=== PATIENT | male | born 2000 | race Caucasian/White ===

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

== ENCOUNTER 2021-11-12 23:03 | Emergency (ER) | payer BC, SELFPAY ==
[2021-11-12 23:04] VITALS: BP 118/77; PULSE 108; RESP 16; TEMP 37.7; O2SAT 97; BMI 21.5
--- NOTE | 2021-11-12 23:16 | CT_ITS ---
STUDY: CT SOFT TISSUE NECK WITH CONTRAST REASON FOR EXAM: Male, 21 years old. Lymphadenitis RADIATION DOSAGE (If Supplied By Facility): CTDIvol = ( 19.83 ) mGy, DLP = ( 621.34 ) mGycm TECHNIQUE: The patient was scanned in a multi-detector CT scanner. High resolution transaxial imaging was performed following intravenous administration of IV 75mL Isovue-370. Sagittal and coronal images were reconstructed. Individualized dose optimization techniques were used for this CT. COMPARISON: None. FINDINGS: NASOPHARYNX: Prominent adenoids. SUPRAHYOID NECK: Purlear tonsils are prominent and protrude medially, contacting the uvula. The palatine tonsils show mild striated enhancement indicate tonsillitis. No ring-enhancing fluid collection is seen to indicate peritonsillar abscess. The uvula does not appear enlarged or edematous. Parapharyngeal fat is preserved. INFRAHYOID NECK: Unremarkable larynx, hypopharynx, and supraglottis. THYROID: No focal lesions. SALIVARY GLANDS: Unremarkable. LYMPH NODES: Enlarged lymph nodes are seen along the right anterior internal jugular quincy chain, measuring up to 21 mm in short axis diameter. Enlarged lymph nodes measuring up to 15 mm in short axis diameter seen along the left anterior internal jugular quincy chain. Numerous normal-sized nodes are seen along both anterior and posterior internal jugular quincy chains and along the spinal accessory chains bilaterally. No suppurative lymph nodes are identified. Normal-sized to slightly enlarged submandibular nodes are present, measuring up to 14 mm in short axis diameter. Normal-sized supraclavicular lymph nodes are noted bilaterally. There is also a prominent right supraclavicular node measuring up to 12 mm in short axis diameter. No superior mediastinal adenopathy is noted. VASCULAR STRUCTURES: Unremarkable. VISUALIZED PORTIONS OF THE ORBITS, PARANASAL SINUSES, MASTOID AIR CELLS AND SKULL BASE: Unremarkable. BONES: Unremarkable. THORACIC INLET: Clear lung apices. IMPRESSION: Prominent adenoids and palatine tonsils with striated enhancement of the palatine tonsils indicating tonsillitis. Associated cervical, submandibular adenopathy and right supraclavicular adenopathy. No peritonsillar or retropharyngeal abscess. Normal epiglottis. Electronically Signed: Gerry Romo MD at 0:22 EDT , CT/Soft Tissue Neck WITH Contrast
--- NOTE | 2021-11-12 23:19 | EX.ED.DYSGE1 ---
HPI History of Present Illness Chief Complaint: Headache Narrative Narrative: Patient presents with bumps on the side of his face and neck that caused him to have headache. He states that he has history of migraine headaches however. He denies any subjective fever, chills, nausea, or vomiting. 3 to 4 days ago, he did notice that the right side of his neck was swollen and puffed up in comparison to the other side. That has resolved, but he states he has residual bumps in front of his right ear and on his right neck. He also noticed them on the left side mainly in his neck. She denies any other symptoms and states I feel fine. No scalp lesions recently. He states he had an upper respiratory illness a month ago, but denies any current sore throat, ear pain, or any other symptoms. [facility] Medical History Hemophilia Skin cancer Home Medications NK 05/26/20 [History Last Taken Unknown] amoxicillin-pot clavulanate 1 tab PO BID #20 tab 11/13/21 [Rx Last Taken Unknown] Allergy/AdvReac Type Severity Reaction Status Date / Time No Known Allergies Allergy Verified 11/12/21 23:05 Social History Smoking Status: Current every day smoker tobacco type: e-cigarettes ROS ROS ED ROS Narrative Constitutional: No fever, no chills. HEENT: No sore throat. No neck pain. No loss of vision. No rhinorrhea. Bumps in front of right ear and on neck bilaterally. States pea-sized lump on right side of neck. Prior right-sided neck swelling-resolved Cardiovascular: No chest pain. No palpitations. No pedal edema. Respiratory: No cough, no shortness of breath. Abdominal: No abdominal pain. No nausea. No vomiting. Genitourinary: No dysuria. No hematuria. Musculoskeletal: No myalgias. No arthralgias. Neurologic: Migraine headaches. No dizziness. No lightheadedness. Skin: No rash. No change in color. Psychiatric: No depression. No anxiety. EXAM Physical Exam Narrative Exam Narrative: Afebrile. Vital signs noted. Temperature 100 ?F. Nontoxic-appearing. HEENT: Normocephalic. Atraumatic. PERRL, EOMI. Neck soft and supple. No point tenderness or step off. Positive preauricular enlarged lymph node on right. Bilateral cervical adenopathy. No noted erythema. Airway patent. No drooling or trismus. Cardiovascular: Regular rate and rhythm. No murmurs, rubs, or gallops appreciated. Respiratory: No tachypnea. Lungs clear to auscultation bilaterally. Gastrointestinal: Abdomen soft, nontender, with normoactive bowel sounds. No rebound or guarding. Neurological: Awake. Alert. Oriented x3. Nonfocal, nonlateralizing. Skin: No rash. Normal color. No pallor. Musculoskeletal: No pedal edema. Full range of motion extremities. Const Vital Signs: 11/12/21 23:04 11/13/21 00:09 11/13/21 00:57 Temperature 100 F H 99.9 F H Temperature Source Temporal Oral Pulse Rate 108 H 98 Respiratory Rate 16 18 Blood Pressure 118/77 Blood Pressure Mean 90 Pulse Ox 97 97 Oxygen Delivery Method Room Air MDM MDM MDM Narrative Medical decision making narrative: Given his bilateral lymphadenopathy, comprehensive work-up was pursued. BMP was obtained and is normal with a normal creatinine and normal BUN. CBC is pending. CT of the neck with IV contrast was also obtained. Patient has slightly elevated white count of 11.7, hemoglobin normal at 13.3. Platelet count also normal at 206. He does have a lymphocytosis elevated at 62.5%. Neutrophil percentage is low at 21.1. He also has monocytes elevated at 13.6. Electrolyte panel is grossly unremarkable. CT of the soft tissue neck shows infective tonsillitis of the palatine tonsils. Although the patient initially states that he does not have a sore throat he states it feels slightly swollen. His pulse ox is 97% on room air. I do feel that this may be the source of his slightly elevated temperature which was repeated at 99.9 ?F orally. He was given his first dose of Augmentin here and a prescription written for the next 10 days. I will touch base with hematology/oncology because the CT did read the tonsillitis with rather large lymph nodes noted at 21 and 15 mm. There are also other normal to slightly enlarged lymph nodes noted bilaterally. These can be associated with his tonsillitis. He was referred to hematology oncology, and to a primary care physician. He does state that he is going back home as he is a student sometime next week. I strongly encouraged him to follow-up with his primary care physician in [place]. Return instructions were reviewed. Disposition is discharged home in stable condition. Lab Data Attestation: I reviewed the patient's lab results. Labs: Laboratory Results - last 24 hr 11/12/21 11/12/21 23:25 23:25 WBC 11.7 H RBC 4.63 Hgb 13.3 Hct 39.5 L MCV 85.3 MCH 28.7 MCHC 33.7 RDW Std Deviation 39.9 RDW Coeff of Zakiya 12.7 Plt Count 206 MPV 9.6 Immature Gran % (Auto) 0.400 Neut % (Auto) 21.1 L Lymph % (Auto) 62.5 H Maverick % (Auto) 13.6 H Eos % (Auto) 0.9 Baso % (Auto) 1.5 H Absolute Neuts (auto) 2.5 Absolute Lymphs (auto) 7.28 H Nucleated RBC % 0 Differential Comment SCANNED Diff Path Review May foll Reactive Lymphocytes 2+ Sodium 137 Potassium 3.8 Chloride 104 Carbon Dioxide 28.0 Anion Gap 5 BUN 10 Creatinine 0.97 Estim Creat Clear Calc 116.91 Est GFR (MDRD) Af Amer 126 Est GFR (MDRD) Non-Af 104 BUN/Creatinine Ratio 10.3 Glucose 100 Calcium 9.1 Radiography Diagnostic Testing: Clinical Impression(s) from Imaging Studies Soft Tissue Neck CT 11/12/21 23:16 Discharge Plan Triage Chief Complaint: Headache ED Provider: Denis Pierce Dx/Rx/DC Orders Clinical Impression: Acute infective tonsillitis, Lymphadenitis Instructions: ED ADENITIS Cervical Abx Tx, ED Tonsillitis Prescriptions: New amoxicillin-pot clavulanate 875-125 mg tablet 1 tab PO BID Qty: 20 RF: 0 No Action NK RF: 0 Primary Care Provider: Care Physician,No Primary Referrals: Kaden Rios MD [STAFF PHYSICIAN] - 3-5 Days if not improving Beth Hernadez MD [STAFF PHYSICIAN] - As soon as possible Care Physician,No Primary [Primary Care Provider] - Disposition Disposition: Home, Self Care Discharge Date/Time: 11/13/21 00:57
[2021-11-12] MEDS: 0.9% Normal Saline 1,000 ML 999 ML IV (23:22)
[2021-11-12 23:42] LABS: Anion Gap 5 (5-15); BUN 10 mg/dL (7-18); BUN/Creat Ratio 10.3 RATIO (10-20); Calcium,Total 9.1 mg/dL (8.5-10.1); Chloride 104 mmol/L (98-107); Creatinine, Serum 0.97 mg/dL (0.70-1.30); EST Glomerular Filtration Rate 104 mL/min (>60); Est Glom Filt Rate - Afr Amer 126 mL/min (>60); Estimated Creatinine Clearance 116.91 ml/min; Glucose 100 mg/dL (74-106); Potassium 3.8 mmol/L (3.5-5.1); Sodium Level 137 mmol/L (136-145)
[2021-11-12 23:51] LABS: Absolute Lymphocyte Count 7.28 X10^3/uL (0.83-4.51); Absolute Neutrophil Count 2.5 X10^3/uL (2.0-7.7); Basophil# 0.18 X10^3/uL; Basophil% 1.5 % (0-1); Eosinophils% 0.9 % (0-5); Hematocrit 39.5 % (40-54); Hemoglobin 13.3 g/dL (13.0-16.5); Lymphocyte # 7.28 X10^3/ul (0.83-4.51); Lymphocyte % 62.5 % (19-41); Mean Corp Hgb Conc 33.7 g/dL (32-36); Mean Corpuscular Hgb 28.7 pg (27.0-32.0); Mean Corpuscular Volume 85.3 fL (80-94); Mean Platelet Vol. 9.6 fl (6.2-12.0); Monocyte# 1.58 X10^3/uL; Monocyte% 13.6 % (0-10); NRBC Flagged by Analyzer 0 % (0-5); Neutrophil # 2.46 X10^3/uL (2.7-7.7); Neutrophil % 21.1 % (47-70); POSITIVE DIFFERENTIAL YES; POSITIVE MORPHOLOGY YES; Platelet Count 206 K/mm3 (150-450); RBC Distribution Width CV 12.7 % (11.6-14.6); RBC Distribution Width SD 39.9 fl (35.1-43.9); Red Blood Count 4.63 M/mm3 (4.6-6.2); White Blood Count 11.7 K/mm3 (4.4-11.0)
[2021-11-12 23:55] LABS: Differential Indicated SCAN CRITERIA MET
[2021-11-13 00:09] VITALS: TEMP 37.7
[2021-11-13 00:11] LABS: Differential Comment SCANNED; Reactive Lymphocyte 2+
[2021-11-13] MEDS: Amox/Clavulanate 875 MG Tablet PO (00:54)
[2021-11-13 00:57] VITALS: PULSE 98; RESP 18; O2SAT 97
[2021-11-13 13:32] LABS: Pathologist Review Reviewed
== END 2021-11-13 00:57 | disposition home or self-care (01) ==
PROVIDERS: Emergency Provider Emergency Medicine; Visit Provider Emergency Medicine
DX: J03.90 Acute tonsillitis, unspecified (principal); I88.9 Nonspecific lymphadenitis, unspecified; F17.290 Nicotine dependence, other tobacco product, uncomplicated
CPT/HCPCS: 70491; 80048; 85025; 99283; J7030; Q9967; A4216

== ENCOUNTER → 2021-11-15 | Outpatient (CLI) | payer BC, SELFPAY ==
[2021-11-15 17:44] LABS: Hematocrit 44.2 % (40-54); Hemoglobin 14.6 g/dL (13.0-16.5); Mean Corpuscular Hgb 28.6 pg (27.0-32.0); Mean Corpuscular Volume 86.5 fL (80-94); POSITIVE DIFFERENTIAL YES; POSITIVE MORPHOLOGY YES; Platelet Count 222 K/mm3 (150-450); RBC Distribution Width CV 13.2 % (11.6-14.6); RBC Distribution Width SD 42.2 fl (35.1-43.9); Red Blood Count 5.11 M/mm3 (4.6-6.2); White Blood Count 14.8 K/mm3 (4.4-11.0)
[2021-11-15 18:52] LABS: Internal QC Validated? YES +Cl - CLEAR BKGD; Monotest POSITIVE (Negative)
[2021-11-15 20:47] LABS: Differential Indicated MANUAL DIFF
[2021-11-15 20:48] LABS: Blast 1 % (0-0); Eosinophil 5 % (0-5); Lymphocyte 53 % (19-41); Metamyelocyte 2 % (0-1); Monocyte 5 % (0-10); Neutrophil-Band 12 % (0-5); Neutrophil-Segmented 22 % (47-70); Total Cells Counted 100 (MANUAL DIFF)
[2021-11-15 20:49] LABS: Atypical Lymphocyte 2+ %; Smudge Cells 2+
[2021-11-15 20:50] LABS: Platelet Estimate ADEQUATE (ADEQ); Red Cell Morphology NORM C+C NORMAL (NORM C&C)
[2021-11-15 21:45] LABS: Absolute Lymphocyte Count 7.84 X10^3/uL (0.83-4.51)
[2021-11-19 20:46] LABS: Pathologist Review Reviewed
== END | disposition home or self-care (01) ==
LOC: MTLAB 15:04
PROVIDERS: Referring Provider Family Medicine; Visit Provider Family Medicine
DX: J02.9 Acute pharyngitis, unspecified (principal)
CPT/HCPCS: 36415; 85025; 86308